=== PATIENT | male | born 1970 | race Caucasian/White ===

== ENCOUNTER 2025-03-03 12:12 | Emergency (ER) | payer MEDICAID, SELFPAY ==
[2025-03-03 12:25] VITALS: BP 151/103
--- NOTE | 2025-03-03 13:16 | ED.GENMED ---
History of Present Illness
General
Chief Complaint: DVT/Possible Blood Clot
Time Seen by Provider: 03/03/25 12:45
Course
Orders/Labs/Results
Orders:
Orders
03/03/25 12:25
US Periph Venous LOWER Ext RT Urgent
Comment:
Reason For Exam: pain in calf
Vital Signs
Initial and Last Documented VS:
Initial Vital Signs
Temp Pulse Resp Pulse Ox
36.8 C 79 19 99
03/03/25 12:22 03/03/25 12:22 03/03/25 12:22 03/03/25 12:22
Last Documented Vital Signs
Temp Pulse Resp BP Pulse Ox
36.8 C 79 19 146/88 99
03/03/25 12:22 03/03/25 12:22 03/03/25 12:22 03/03/25 14:18 03/03/25 13:17
MDM/Problems Addressed
Differential Diagnosis Includes:
see MDM
MDM/Problems Addressed:
Note:
CHIEF COMPLAINT(S)
- Leg pain and swelling
HISTORY OF PRESENT ILLNESS
The patient is a 54-year-old male who presented with discomfort and swelling in his left leg. The symptoms began approximately five to six days ago and have progressed with time. The patient reported the sensation as if he 'had been whacked' and
initially thought it was a pulled muscle, as there was no associated trauma. He recently returned from a two-week trip to [place], flying back two weeks ago, and noted the symptoms several days after his return. He engaged in stationary biking 2 days
in an attempt to alleviate the symptoms, which subsequently worsened post-exercise. The pain is exacerbated with walking. The patient denies any pain during stationary biking and further mentioned the absence of historical swelling, which initially
presented with pain without swelling.
The patient has a noteworthy recent ophthalmological history, having undergone a vitrectomy nine days ago for a detached retina, which was treated with a gas bubble insertion by his retina specialist in [place] following his flight.
PAST MEDICAL AND SURGICAL HISTORY
- Retinal detachment with recent vitrectomy and gas bubble insertion
- History of neck surgery approximately 10 years ago due to a fracture, with no current neurological deficits.
CHRONIC MEDICAL CONDITIONS SIGNIFICANTLY AFFECTING CARE
The patient takes a daily low-dose aspirin and is prescribed lisinopril for hypertension. He denies diabetes and history of arthritis.
PHYSICAL EXAM
- Nursing notes reviewed and vital signs reviewed.
-GENERAL: Alert , in no apparent distress
EYE: pupils equal and reactive
NECK: Supple
ENT: o/p clr, mmm.
CARDIAC: Regular rate and rhythm .
LUNGS: Clear breath sounds bilaterally, no acute respiratory distress, no wheezes/rales/rhonchi
ABDOMEN: Soft, without focal tenderness, no r/g, no cvat, normal bowel sounds
NEUROLOGICAL: Alert and oriented, no focal neuro deficits
SKIN: Warm and dry, skin intact.
MUSCULOSKELETAL: Moderate edema to the right calf, nonpitting, compartment soft, neurovascularly intact distally, tender gastroc region, Achilles intact, knee full flexion intact
PSYCH: Normal and appropriate interaction.
PLAN
- Order an ultrasound to evaluate the possibility of deep vein thrombosis (DVT). The patient has been informed about the likelihood of a blood clot, and the ultrasound has already been ordered.
- Discussion around differential diagnosis, suggesting that a Bakers cyst leak could also present similarly, with potential coverage by ultrasound.
DIFFERENTIAL DIAGNOSIS
The Differential Diagnosis includes, in no particular order and is not limited to:
1. Deep vein thrombosis
2. Bakers cyst rupture
3. Muscle strain
4. Cellulitis
5. Popliteal artery aneurysm
6. Venous insufficiency
7. Tendonitis
8. Osteoarthritis exacerbation
9. Lymphedema
10. Compartment syndrome
CARE-UPDATE
03/03/25 - 14:27
Reviewed patient with recent retinal detachment and new onset right calf pain and swelling. Patient reports a sudden 'whack' or 'pop' sensation without preceding trauma. Indicates increased swelling after using a motorized bike, occurring two days
ago. On physical examination: significant calf swelling noted, but no tenderness or weakness in the leg; soft compartments with no skin changes; pulses remain normal.
his US was neg for dvt bu the does have complex fluid collectino in posterior calf which could be hematoma
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
will give crutches, hussain wrap compression and recommend ortho f/u
repeat US in 1-2 weeks if still present
*Pulse Oximetry
SaO2: 99
ED Attending Note
-
Portions of this chart may have been created with voice recognition software.� Occasional wrong word or��sound alike� substitutions may have occurred due to the inherent limitations of voice recognition software.
Discharge Plan
Departure
Patient Disposition: Home (Routine Discharge)
Date of Disposition: 03/03/25
Time of Disposition: 14:33
Patient with high blood pressure during this ER visit?: Yes
Condition: Fair
Covid-19: Not Applicable
Discharge Problem:
Hematoma of lower leg
Instructions: Minor contusion - ED (DC)
Referrals:
Pieter Thurman MD [Active, Orthopedics] - Follow up in 1 week
Activity Restrictions/Additional Instructions:
Your ultrasound was negative for a blood clot. However there is a small complex fluid collection within the soft tissue of the right calf which likely is a hematoma. I wonder if perhaps you pulled your gastrocnemius muscle which is in the back of
your calf, usually if it was your Achilles it would be lower, regardless you should rest, ice, elevate, compress, use the Hussain wrap during the day and take it off at night. Follow-up with orthopedics. Please call for an appointment. You can use
the crutches to limit your weight-bearing
Return for worsening color change, numbness tingling or weakness to your foot, more firm swelling in the calf, foot drop, cold foot, chest pain or shortness of breath. If you still have swelling in the next 1 to 2 weeks you could consider having
another ultrasound to be sure there is no clot
Interventions
Interventions:
*General Assessment Last Done: 03/03/25 12:24
*Neglect/Abuse Screening Last Done: 03/03/25 12:24
*ED COVID-19 Vaccine History Last Done: 03/03/25 12:24
*ED Influenza Vaccine History Last Done: 03/03/25 12:24
[facility] Fall Risk Assessment Tool Last Done: 03/03/25 14:18
*Risk Screen - Suicide (C-SSRS) Last Done: 03/03/25 12:24
ED- Cardiac Assessment Last Done: 03/03/25 14:18
ED- Pulmonary Assessment Last Done: 03/03/25 14:18
ED-Peripheral Vascular Assessment Last Done: 03/03/25 14:19
ED-Skin Assessment Last Done: 03/03/25 14:18
Discharge Date and Time
Print Language: MONGOLIAN
[2025-03-03 14:18] VITALS: BP 146/88; BMI 25.0
== END 2025-03-03 14:50 | disposition home or self-care (01) ==
LOC: EMR 12:12
PROVIDERS: EMERGENCY PHYSICIAN Emergency Medicine
DX: M79.81 Nontraumatic hematoma of soft tissue (principal); I10 Essential (primary) hypertension; Z79.82 Long term (current) use of aspirin
CPT/HCPCS: 99284; 93971